=== PATIENT | female | born 1960 | race Caucasian/White ===

== ENCOUNTER → 2023-09-04 14:17 | Outpatient (REF) | payer OTHER, SELFPAY | LOC: HWRAD 14:17 | PROVIDERS: ATTENDING PHYSICIAN Internal Medicine Gastroenterology; FAMILY PHYSICIAN Family Medicine; REFERRING PHYSICIAN Urology | DX: K76.0 Fatty (change of) liver, not elsewhere classified (principal) | CPT/HCPCS: 76700 ==

== ENCOUNTER → 2024-01-21 14:00 | Outpatient (REF) | payer OTHER, SELFPAY | LOC: WDC 14:00 | PROVIDERS: ATTENDING PHYSICIAN Family Medicine | DX: Z12.31 Encounter for screening mammogram for malignant neoplasm of breast (principal) | CPT/HCPCS: 77063; 77067 ==

== ENCOUNTER 2024-05-10 14:38 | Emergency (ER) | payer OTHER, SELFPAY ==
[2024-05-10 14:43] VITALS: BP 151/84
--- NOTE | 2024-05-10 16:06 | ED.GENMED ---
History of Present Illness
<Dayna Dozier PA-C - Last Filed: 05/10/24 20:25>
General
Chief Complaint: Musculo-Skeletal Complaint
Source: patient
Exam Limitations: none
Time Seen by Provider: 05/10/24 16:00
Nursing documentation reviewed up to this point in time: agreed with
History of Present Illness
History of Present Illness:
This is a 63-year-old female with past medical history of migraines, asthma, hypertension, IBS presents emergency department today with concerns of right lower extremity pain. Patient reports that today she was walking back into her house from her
car when she slipped on ice and fell onto her right side. Patient states that she is able to stand up on her own but has a call her because she is not able to bear weight well. She notes that the pain is primarily in her right knee but
also notes right hip and right ankle pain. She also notes that her right foot has felt cold to her but she is with sensation. She denies any other injuries she states that she has not think she hit her head or injure her neck she denies any
headaches she denies any neck pain. She does not take any blood thinning medications. She not lose consciousness when she fell. She is a patient of Dr. Martin.
Past History
<Dayna Dozier PA-C - Last Filed: 05/10/24 20:25>
Past History
ED Past Medical History: HTN and Hypercholesterolemia
Social History
Tobacco: Non-smoker
Personal:
Living: with family
Review of Systems
<VANGIE Guzman Last Filed: 05/10/24 20:25>
Review of Systems
All Other Systems: ROS reviewed and negative except as documented in HPI and ROS
Phy Exam
<VANGIE Guzman Last Filed: 05/10/24 20:25>
Physical Exam
Physical Exam:
General: Patient is well appearing and in no acute distress; non-toxic
Skin: Warm and dry, no rashes or lesions
Head: Normocephalic, atraumatic
Eyes: Sclera non-icteric. EOMs intact.
Cardiac: Regular rate
Peripheral Vascular: 2+ dorsalis pedis and posterior tibial pulses bilaterally
Pulm: Normal respiratory effort
Abdomen: No abdominal tenderness
Musculoskeletal: No joint laxity of the right ankle negative anterior drawer testing. Ecchymosis and swelling noted over the right knee with no laxity with varus and valgus stress, negative Faiza's. No right hip pain with internal/external
rotation flexion extension.
Neuro: CN II-XII intact, no focal neurologic deficits.
Psychiatric: Appropriate mood and affect.
Course
<Dayna Dozier PA-C - Last Filed: 05/10/24 20:25>
Orders/Labs/Results
Orders:
Orders
05/10/24 14:47
Ankle, Right 3 view CR [CR Ankle - Right Min 3 Views *] Urgent
Comment:
Reason For Exam: pain, fall
Foot, Right 3 View [CR Foot - Right Min 3 Views] Urgent
Comment:
Reason For Exam: fall, pain
Knee, Right 4 or More Views [CR Knee- Right 4 Or More View*] Urgent
Comment:
Reason For Exam: fall, pain
05/10/24 15:00
CR Hip - RT w/wo Pel 2-3 Vw* Urgent
Comment:
Reason For Exam: injury, pain
Include a pelvis x-ray?: Yes
05/10/24 17:16
Acetaminophen [Tylenol] 1,000 mg PO NOW STA
05/10/24 19:16
Crutches-Treatment ONCE
Knee Immobilizer Right-Treatme ONCE
05/10/24 19:17
CT Lower Ext W/o Iv Cont Rt Urgent
Comment:
Reason For Exam: right knee pain
Vital Signs
Initial and Last Documented VS:
Initial Vital Signs
Temp Pulse Resp BP Pulse Ox
98.2 F 92 18 151/84 97
05/10/24 14:43 05/10/24 14:43 05/10/24 14:43 05/10/24 14:43 05/10/24 14:43
Last Documented Vital Signs
Temp Pulse Resp BP Pulse Ox
98 F 82 17 121/88 99
05/10/24 21:19 05/10/24 21:19 05/10/24 21:19 05/10/24 21:19 05/10/24 21:19
<Carmelo Manrique, DO - Last Filed: 05/11/24 00:33>
Orders/Labs/Results
Orders:
Orders
05/10/24 14:47
Ankle, Right 3 view CR [CR Ankle - Right Min 3 Views *] Urgent
Comment:
Reason For Exam: pain, fall
Foot, Right 3 View [CR Foot - Right Min 3 Views] Urgent
Comment:
Reason For Exam: fall, pain
Knee, Right 4 or More Views [CR Knee- Right 4 Or More View*] Urgent
Comment:
Reason For Exam: fall, pain
05/10/24 15:00
CR Hip - RT w/wo Pel 2-3 Vw* Urgent
Comment:
Reason For Exam: injury, pain
Include a pelvis x-ray?: Yes
05/10/24 17:16
Acetaminophen [Tylenol] 1,000 mg PO NOW STA
05/10/24 19:16
Crutches-Treatment ONCE
Knee Immobilizer Right-Treatme ONCE
05/10/24 19:17
CT Lower Ext W/o Iv Cont Rt Urgent
Comment:
Reason For Exam: right knee pain
Vital Signs
Initial and Last Documented VS:
Initial Vital Signs
Temp Pulse Resp BP Pulse Ox
98.2 F 92 18 151/84 97
05/10/24 14:43 05/10/24 14:43 05/10/24 14:43 05/10/24 14:43 05/10/24 14:43
Last Documented Vital Signs
Temp Pulse Resp BP Pulse Ox
98 F 82 17 121/88 99
05/10/24 21:19 05/10/24 21:19 05/10/24 21:19 05/10/24 21:19 05/10/24 21:19
<Dayna Dozier PA-C - Last Filed: 05/10/24 20:25>
MDM/Problems Addressed
Differential Diagnosis Includes:
Differentials include knee contusion, tibial plateau fracture, ankle sprain, bimalleolar fracture
MDM/Problems Addressed:
Is a 63-year-old female with past medical history of migraines hypertension, hyperlipidemia IBS presents emergency department today with concerns of right knee pain following a fall. On physical exam, she is neurovascularly intact. She was found
to have a lateral tibial plateau fracture on x-ray. CT scan was recommended for further characterization of the fracture. Reviewed case with Dr. Le he will see patient in office tomorrow morning for evaluation. Patient will be placed in knee
immobilizer and will be nonweightbearing with crutches. Patient stable for discharge. Case reviewed with my attending.
Chronic conditions affecting care:
htn
<Dayna Dozier PA-C - Last Filed: 05/10/24 20:25>
*Pulse Oximetry
Patient hypoxic: no
*Critical Care Note
Total Time (30-74mins, 75-104mins- exclusive of procedures): Not Applicable
Data Reviewed
Review of Other/Old Records Reveals: Records (Reviewed discharge summary from 02/21/2017 patient seen and admitted for colitis)
Source: patient and records
Prescriptions/Medications Considered But Not Given:
Patient states that she prefers to manage her pain with Tylenol
<Carmelo Manrique, - Last Filed: 05/11/24 00:33>
*Radiology
Radiology exam reviewed: radiology read reviewed (CT lower extremity shows lateral tibial plateau fracture, small avulsion fracture superior fibular head)
<Dayna Dozier PA-C - Last Filed: 05/10/24 20:25>
Patient Management
Discussion with other providers: Mail Clerk Bills (Dr. Ty Daugherty)
Escalation/DeEscalation of care consider admission/obs:
admit not indicated, case reviewed with my attending
ED Attending Note
<Dayna Dozier PA-C - Last Filed: 05/10/24 20:25>
-
Portions of this chart may have been created with voice recognition software.� Occasional wrong word or��sound alike� substitutions may have occurred due to the inherent limitations of voice recognition software.
<Carmelo Manrique DO - Last Filed: 05/11/24 00:33>
ED Attending Note
Patient seen and examined by attending physician: Yes
I performed a history and physical exam of patient and discussed management with resident, I reviewed resident's note and agree with documented findings and plan of care.: Yes
ED Attending Note:
I reviewed and agree with history treatment plan by Dayna Dozier PA-C. My exam revealed 63-year-old female with lateral joint line pain, swelling right knee. no other focal injuries. Knee immobilizer placed. Follow-up with orthopedics
tomorrow. Nonweightbearing.
Discharge Plan
Departure
Patient Disposition: Home (Routine Discharge)
Date of Disposition: 05/10/24
Time of Disposition: 20:24
Patient with high blood pressure during this ER visit?: Yes
Condition: Good
Discharge Problem:
Closed fracture of lateral portion of right tibial plateau
Instructions: How to Use Crutches, Lower Leg Fracture ED, BLOOD PRESSURE
Prescriptions:
No Action
cetirizine 10 MG tablet
10 mg PO DAILY
simvastatin 40 MG tablet
40 mg PO DAILY
lisinopril 10 MG tablet
10 mg PO DAILY
metronidazole 500 MG tablet
500 mg PO TID Qty: 18 0RF
levofloxacin 500 MG tablet
500 mg PO DAILY Qty: 6 0RF
doxycycline hyclate 100 MG capsule
100 mg PO Q12 Qty: 0 0RF
Rx Instructions:
resume after you finishe Levaquin and Flagyl.
Referrals:
Rajat Crawford MD [Active] - Call in 1-3 days for appt
Jennifer Issa DO [Family Provider] -
Activity Restrictions/Additional Instructions:
You tentatively have an appointment to see Dr. Crawford tomorrow ([facility] [address], [place] [address]) at 9:30 am at [facility] [place] office. Please call the office around 8 am to confirm this.
Please wear the knee immobilizer. Please do not bear weight on the affected knee. Please use crutches when ambulating.
PLEASE RETURN TO EMERGENCY DEPARTMENT SHOULD YOU DEVELOP AN ACUTE WORSENING OF YOUR PAIN, LOSS OF SENSATION IN YOUR LOWER EXTREMITY, PALLOR, CHEST PAIN, SHORTNESS OF BREATH, OR ANY OTHER SIGNS OR SYMPTOMS WORRISOME TO YOU.
Interventions
Interventions:
*Risk Screen - Suicide Last Done: 05/10/24 14:43
*General Assessment Last Done: 05/10/24 14:43
*Neglect/Abuse Screening Last Done: 05/10/24 14:43
ED- Fall Risk Assessment Last Done: 05/10/24 18:42
*ED COVID-19 Vaccine History Last Done: 05/10/24 18:42
*Nursing Disposition Last Done: 05/10/24 21:19
ED-Musculoskeletal Assessment Last Done: 05/10/24 16:08
Discharge Date and Time
Discharge Date/Time: 05/10/24 21:21
Print Language: AZERI
[2024-05-10] MEDS: TYLENOL 1000 MG PO (17:22)
[2024-05-10 19:00] VITALS: BP 124/86
[2024-05-10 19:02] VITALS: BMI 31.2
[2024-05-10 19:05] VITALS: BP 124/86
[2024-05-10 21:19] VITALS: BP 121/88
== END 2024-05-10 21:21 | disposition home or self-care (01) ==
LOC: EMR 14:38
PROVIDERS: EMERGENCY PHYSICIAN Emergency Medicine; FAMILY PHYSICIAN Family Medicine
DX: S82.144A Nondisplaced bicondylar fracture of right tibia, initial encounter for closed fracture (principal); S82.491A Other fracture of shaft of right fibula, initial encounter for closed fracture; S80.01XA Contusion of right knee, initial encounter; M25.551 Pain in right hip; M25.571 Pain in right ankle and joints of right foot; W00.0XXA Fall on same level due to ice and snow, initial encounter; Y93.01 Activity, walking, marching and hiking; Y92.009 Unspecified place in unspecified non-institutional (private) residence as the place of occurrence of the external cause; I10 Essential (primary) hypertension; E78.00 Pure hypercholesterolemia, unspecified; G43.909 Migraine, unspecified, not intractable, without status migrainosus; J45.909 Unspecified asthma, uncomplicated; K58.9 Irritable bowel syndrome, unspecified; K52.9 Noninfective gastroenteritis and colitis, unspecified; K57.92 Diverticulitis of intestine, part unspecified, without perforation or abscess without bleeding; Z90.5 Acquired absence of kidney; Z98.0 Intestinal bypass and anastomosis status; Z88.1 Allergy status to other antibiotic agents; Z88.5 Allergy status to narcotic agent
CPT/HCPCS: 99284; 29505; 73502; 73564; 73610; 73630; 73700

== ENCOUNTER → 2024-06-03 15:12 | Outpatient (REF) | payer OTHER, SELFPAY | LOC: RAD 15:12 | PROVIDERS: ATTENDING PHYSICIAN Nurse Practitioner; FAMILY PHYSICIAN Family Medicine | DX: R10.32 Left lower quadrant pain (principal) | CPT/HCPCS: 74177; Q9967 ==

== ENCOUNTER → 2024-08-18 09:05 | Outpatient (REF) | payer OTHER, SELFPAY | LOC: HWRAD 09:05 | PROVIDERS: ATTENDING PHYSICIAN Internal Medicine Gastroenterology; FAMILY PHYSICIAN Family Medicine; REFERRING PHYSICIAN Urology | DX: K76.0 Fatty (change of) liver, not elsewhere classified (principal) | CPT/HCPCS: 76700 ==

== ENCOUNTER 2024-10-03 08:29 | Inpatient (IN) | payer OTHER, SELFPAY ==
[2024-10-03] VITALS (9 sets, daily range): BP systolic 116–154; BP diastolic 72–89; BMI 32.0
[2024-10-03 02:00] LABS: % Basophils 0.3 % (0-2); % Eosinophils 0.4 % (0-6); % Immature Granulocytes 0.4 % (0-0.5); % Lymphocytes 7.8 % (20.5-51.1); % Monocytes 8.1 % (1.7-9.3); Absolute Basophils 0.1 10^3/uL (0-0.2); Absolute Eosinophils 0.1 10^3/uL (0-0.7); Absolute Immature Granulocytes 0.1 10^3/uL (0-0.05); Absolute Lymphocytes 1.6 10^3/uL (1.2-3.4); Absolute Monocytes 1.6 10^3/uL (0.1-0.6); Absolute Neutrophils 16.6 10^3/uL (1.4-6.5); Hematocrit 40.3 % (37.0-47.0); Hemoglobin 14.1 g/dL (12.0-16.0); Mean Corpuscular Hgb 29.7 pg (27.0-31.0); Mean Corpuscular Volume 84.8 fL (81.0-99.0); Mean Platelet Volume 8.5 fL (7.4-10.4); Nucleated Red Blood Cells % 0 %; Platelet Count 300 10^3/uL (130-400); Red Blood Cell Count 4.75 10^6/uL (4.20-5.40); Red Cell Dist. Width 12.7 % (11.5-14.5); White Blood Cell Count 20.1 10^3/uL (4.8-10.8)
[2024-10-03 02:02] LABS: Urine Albumin Negative (Neg - Trace); Urine Bilirubin Negative (Negative); Urine Character Clear (Clear); Urine Color Yellow; Urine Glucose Negative (Negative); Urine Ketone Negative (Negative); Urine Leukocyte Negative (Negative); Urine Nitrite Negative (Negative); Urine Occult Blood Negative (Negative); Urine Urobilinogen Negative (Neg - 1+)
[2024-10-03 02:11] LABS: ALT (SGPT) 30 U/L (0-35); AST (SGOT) 23 U/L (14-36); Albumin 4.4 g/dl (3.5-5.0); Alkaline Phosphatase 90 U/L (38-126); Blood Urea Nitrogen 21 mg/dl (7-17); Carbon Dioxide 25 mmol/L (22-30); Chloride 111 mmol/L (98-107); Estimated Creatinine Clearance 78 ml/min; Glucose 130 mg/dl (70-99); Lipase 173 U/L (23-300); Sodium 143 mmol/L (135-145); Total Bilirubin 1.4 mg/dl (0.2-1.3); Total Protein 6.7 g/dl (6.3-8.2); eGFR > 60.00
--- NOTE | 2024-10-03 02:18 | ED.GENMED ---
History of Present Illness
<Khushbu Ward MD - Last Filed: 10/03/24 02:52>
General
Chief Complaint: Abdominal Pain
Source: patient and spouse
Time Seen by Provider: 10/03/24 02:04
History of Present Illness
History of Present Illness:
This patient is a 64-year-old female who states that she was feeling her usual self all day today. After dinner she went for a walk and she started to feel like she needed to have a bowel movement. When she got home she passed originally a solid
stool that then became liquid. Since that time, she has had multiple episodes of passing what looks like mostly red blood with mixed bits in it. She also has diffuse abdominal pain that feels like 'cramp', that waxes and wanes in intensity without
specific provoking or relieving factors. It is without radiation. She is slightly nauseous but denies vomiting, fever, chills. She denies recent travel, sick contacts, chest pain or shortness of breath. Patient recently had an episode of colitis
treated with Augmentin approximately 3 months ago. Otherwise no recent antibiotics.
Past History
<Khushbu Ward MD - Last Filed: 10/03/24 02:52>
Past History
ED Past Medical History: HTN, Hypercholesterolemia and Other (Asthma, colitis, kidney cancer)
ED Past Surgical History: Orthopedic
Social History
Tobacco: Non-smoker
Alcohol: None
Drug: None
Personal:
Living: with family
Phy Exam
<Khushbu Ward MD - Last Filed: 10/03/24 02:52>
Physical Exam
Physical Exam:
GENERAL: Alert , in no apparent distress
EYE: pupils equal and reactive
NECK: Supple, no significant adenopathy.
ENT: o/p clr, mmm.
CARDIAC: Regular rate and rhythm .
LUNGS: Clear breath sounds bilaterally, no acute respiratory distress, no wheezes/rales/rhonchi
ABDOMEN: Soft, nonspecific mild diffuse tenderness, no r/g, no cvat
NEUROLOGICAL: Alert and oriented, no focal neuro deficits
SKIN: Warm and dry, skin intact.
MUSCULOSKELETAL: No edema, well perfused.
PSYCH: Normal and appropriate interaction.
Course
<Khushbu Ward MD - Last Filed: 10/03/24 02:52>
Orders/Labs/Results
Orders:
Orders
10/03/24 01:44
Complete Blood Count/With Diff Urgent
Comprehensive Metabolic Panel Urgent
Lipase Urgent
Urinalysis Reflex To Culture Urgent
Date Specimen was Collected: 10/03/24
Time Specimen was Collected: 01:42
10/03/24 02:17
CT Abd/Pel (IV only)-DH only Urgent
Comment:
Reason For Exam: hx colitis, now diffuse abd pain/bloody stool
10/03/24 02:20
0.9% Sodium Chloride 1000 ml [Nss] 1,000 ml IV BOLUS
10/03/24 02:53
Lactic Acid Urgent
10/03/24 02:58
Ondansetron Injectable [Zofran] 4 mg .ROUTE .STK-MED ONE
10/03/24 03:01
Ondansetron Injectable [Zofran] 4 mg IV NOW STA
10/03/24 03:24
Acetaminophen 1000 MG ONCE Acetaminophen 1000MG/100Ml [Ofirmev] 1,000 mg in 100 ml IV ONCE
Acetaminophen IV Indication:: ED Narcotic Naive Pt-ONCE
Zosyn 4.5 grams IVPB NOW Piperacillin/Tazo 4.5 Gram [Zosyn] 4.5 gram in 100 ml IV NOW
Abnormal Lab Results
10/03/24
01:44
WBC 20.1 H 10^3/uL
(4.8-10.8)
Abs Immat Gran (auto) 0.1 H 10^3/uL
(0-0.05)
Absolute Neuts (auto) 16.6 H 10^3/uL
(1.4-6.5)
Absolute Monos (auto) 1.6 H 10^3/uL
(0.1-0.6)
Neutrophils % 83.0 H %
(42.2-75.2)
Lymphocytes % 7.8 L %
(20.5-51.1)
Chloride 111 H mmol/L
(98-107)
BUN 21 H mg/dl
(7-17)
Glucose 130 H mg/dl
(70-99)
Total Bilirubin 1.4 H mg/dl
(0.2-1.3)
10/03/24 01:44
10/03/24 01:44
Vital Signs
Initial and Last Documented VS:
Initial Vital Signs
Temp Pulse Resp BP Pulse Ox
98 F 103 20 141/88 96
10/03/24 01:08 10/03/24 01:08 10/03/24 01:08 10/03/24 01:08 10/03/24 01:08
Last Documented Vital Signs
Temp Pulse Resp BP Pulse Ox
98 F 103 20 136/89 98
10/03/24 01:08 10/03/24 01:08 10/03/24 01:08 10/03/24 03:00 10/03/24 03:00
<Carol Murcia, DO - Last Filed: 10/03/24 03:29>
Orders/Labs/Results
Orders:
Orders
10/03/24 01:44
Complete Blood Count/With Diff Urgent
Comprehensive Metabolic Panel Urgent
Lipase Urgent
Urinalysis Reflex To Culture Urgent
Date Specimen was Collected: 10/03/24
Time Specimen was Collected: 01:42
10/03/24 02:17
CT Abd/Pel (IV only)-DH only Urgent
Comment:
Reason For Exam: hx colitis, now diffuse abd pain/bloody stool
10/03/24 02:20
0.9% Sodium Chloride 1000 ml [Nss] 1,000 ml IV BOLUS
10/03/24 02:53
Lactic Acid Urgent
10/03/24 02:58
Ondansetron Injectable [Zofran] 4 mg .ROUTE .STK-MED ONE
10/03/24 03:01
Ondansetron Injectable [Zofran] 4 mg IV NOW STA
10/03/24 03:24
Acetaminophen 1000 MG ONCE Acetaminophen 1000MG/100Ml [Ofirmev] 1,000 mg in 100 ml IV ONCE
Acetaminophen IV Indication:: ED Narcotic Naive Pt-ONCE
Zosyn 4.5 grams IVPB NOW Piperacillin/Tazo 4.5 Gram [Zosyn] 4.5 gram in 100 ml IV NOW
Abnormal Lab Results
10/03/24
01:44
WBC 20.1 H 10^3/uL
(4.8-10.8)
Abs Immat Gran (auto) 0.1 H 10^3/uL
(0-0.05)
Absolute Neuts (auto) 16.6 H 10^3/uL
(1.4-6.5)
Absolute Monos (auto) 1.6 H 10^3/uL
(0.1-0.6)
Neutrophils % 83.0 H %
(42.2-75.2)
Lymphocytes % 7.8 L %
(20.5-51.1)
Chloride 111 H mmol/L
(98-107)
BUN 21 H mg/dl
(7-17)
Glucose 130 H mg/dl
(70-99)
Total Bilirubin 1.4 H mg/dl
(0.2-1.3)
10/03/24 01:44
10/03/24 01:44
Vital Signs
Initial and Last Documented VS:
Initial Vital Signs
Temp Pulse Resp BP Pulse Ox
98 F 103 20 141/88 96
10/03/24 01:08 10/03/24 01:08 10/03/24 01:08 10/03/24 01:08 10/03/24 01:08
Last Documented Vital Signs
Temp Pulse Resp BP Pulse Ox
98 F 103 20 136/89 98
10/03/24 01:08 10/03/24 01:08 10/03/24 01:08 10/03/24 03:00 10/03/24 03:00
<Khushbu Ward MD - Last Filed: 10/03/24 02:52>
*Pulse Oximetry
SaO2: 96
Oxygen Mode of Delivery: Room air
<Carol Murcia DO - Last Filed: 10/03/24 03:29>
*Radiology
Radiology exam reviewed: radiology read reviewed
*Pulse Oximetry
Patient hypoxic: no
*Critical Care Note
Total Time (30-74mins, 75-104mins- exclusive of procedures): Not Applicable
<Khushbu Ward MD - Last Filed: 10/03/24 02:52>
Update Note
Update Note:
Patient presents to the Emergency Department with ____abdominal pain and bloody stool
Number and Complexity of Problems Addressed at the Encounter
� Chronic conditions affecting care:
� Acute Exacerbation and/or Progression of Chronic Illness:
� Differential Diagnosis includes: But not limited to ischemic colitis, infectious colitis, diverticulitis, etc. etc.
Amount and/or Complexity of Data to be Reviewed and Analyzed
� I performed an independent evaluation of and my interpretation is:
EKG:
CT:
Xrays:
Laboratory Studies: Leukocytosis noted, lactic acid pending, mild prerenal azotemia
Other:
� Review of other/old records reveals: Patient had an episode of colitis in 2017 treated with antibiotic
� Clinical information was obtained by an independent historian: who is bedside
� Prescriptions/Medications Considered but not given:
� Further testing considered but not performed:
Risk of Complications and/or Morbidity or Mortality of Patient Management
� Social determinants of health affecting care:
� Discussion with other providers (PCP, Hospitalists, Consultants, etc):
� Escalation of care including admission/observation vs risk of discharge considered: CT report pending, likely colitis, may need admission IV antibiotics.
<Carol Murcia, DO - Last Filed: 10/03/24 03:29>
Update Note
Update Note:
Patient presents to the Emergency Department with ____abdominal pain and bloody stool
Number and Complexity of Problems Addressed at the Encounter
� Chronic conditions affecting care:
� Acute Exacerbation and/or Progression of Chronic Illness:
� Differential Diagnosis includes: But not limited to ischemic colitis, infectious colitis, diverticulitis, etc. etc.
Amount and/or Complexity of Data to be Reviewed and Analyzed
� I performed an independent evaluation of and my interpretation is:
EKG:
CT:
Xrays:
Laboratory Studies: Leukocytosis noted, lactic acid pending, mild prerenal azotemia
Other:
� Review of other/old records reveals: Patient had an episode of colitis in 2017 treated with antibiotic
� Clinical information was obtained by an independent historian: who is bedside
� Prescriptions/Medications Considered but not given:
� Further testing considered but not performed:
Risk of Complications and/or Morbidity or Mortality of Patient Management
� Social determinants of health affecting care:
� Discussion with other providers (PCP, Hospitalists, Consultants, etc):
� Escalation of care including admission/observation vs risk of discharge considered: CT report pending, likely colitis, may need admission IV antibiotics.
03:20
CAT scan shows uncomplicated sigmoid diverticulitis versus short segment of colitis. No bowel obstruction.
Will initiate IV Zosyn for diverticulitis versus infectious, hemorrhagic colitis. I have offered pain medication, patient hesitant for IV narcotics, agreeable to IV Tylenol.
Will continue IV fluids and admit to hospitalist service.
ED Attending Note
<Khushbu Ward MD - Last Filed: 10/03/24 02:52>
-
Portions of this chart may have been created with voice recognition software.� Occasional wrong word or��sound alike� substitutions may have occurred due to the inherent limitations of voice recognition software.
Discharge Plan
Departure
Patient Disposition: Admit
Date of Disposition: 10/03/24
Time of Disposition: 03:25
Admit to: Med/Surg
Admit to doctor: [facility]
Presentation/result/management discussed w/ accepting MD/DO: Hospitalist
Condition: Fair
Discharge Problem:
Acute diverticulitis, Acute hemorrhagic colitis
Prescriptions:
No Action
cetirizine 10 MG tablet
10 mg PO DAILY
simvastatin 40 MG tablet
40 mg PO DAILY
lisinopril 10 MG tablet
10 mg PO DAILY
metronidazole 500 MG tablet
500 mg PO TID Qty: 18 0RF
levofloxacin 500 MG tablet
500 mg PO DAILY Qty: 6 0RF
doxycycline hyclate 100 MG capsule
100 mg PO Q12 Qty: 0 0RF
Rx Instructions:
resume after you finishe Levaquin and Flagyl.
Referrals:
Jennifer Issa DO [Family Provider, Family Practice]
Interventions
Interventions:
*Risk Screen - Suicide Last Done: 10/03/24 01:08
*General Assessment Last Done: 10/03/24 01:08
*Neglect/Abuse Screening Last Done: 10/03/24 01:08
*ED- Fall Risk Assessment Last Done: 10/03/24 01:08
*ED COVID-19 Vaccine History Last Done: 10/03/24 01:08
TU-Yvftuo-Uzmsthafff Assessment Last Done: 10/03/24 01:31
ED- Cardiac Assessment Last Done: 10/03/24 01:31
ED- Pulmonary Assessment Last Done: 10/03/24 01:31
Discharge Date and Time
Print Language: URDU
[2024-10-03] MEDS: NSS 1000 IV (02:25)
[2024-10-03] MEDS: ZOFRAN 4 MG IV (03:05)
[2024-10-03 03:14] LABS: Lactic Acid 1.1 mmol/L (0.7-2.0)
--- NOTE | 2024-10-03 03:28 | HPS.HSE ---
Family Physician
-
Family Physician: Jennifer Issa
Chief Complaint
-
Abdominal pain
History of Present Illness
This is a 64-year-old female past medical history of hypertension, hyperlipidemia, prior diverticulitis with a prior sigmoidectomy presented to the emergency room with abdominal pain.
She reported acute onset of epigastric abdominal pain immediately after dinner. Associated with bloating. She reports the pain is nonradiating and not associated with fevers or chills. She attempted to sleep but had continued abdominal pain and
then started having bloody bowel movement. She reports bloody stools mixed with mucus. She denies any melena. She reports that this is reminiscent of prior episode of similar presentation in 2017. Patient reports that she has had a colonoscopy
since then and has not been diagnosed with inflammatory bowel disease. She denies any blood thinners or NSAID use.
In the emergency department patient was afebrile, blood pressure was 136/89 with a pulse of 103 and she was satting 98% on room air.
White count was 20, hemoglobin was 14.1 and platelet count was 300. Electrolytes were all normal. BUN and creatinine were normal.
Patient had a CT of the abdomen pelvis which showed a sigmoid diverticulitis versus possible colitis.
Medical History
Past Medical History
Past Medical History: Reports GERD, HTN, Hypercholesterolemia and Other (History of diverticulitis)
Additional Past Medical History:
Bladder cancer status post partial nephrectomy
Past Surgical History: Reports Bowel Resection (Sigmoidectomy) and Urological (Partial nephrectomy)
Social History
Tobacco: Non-smoker
Alcohol: None
Drug: None
Family History
Family History: Not pertinent
Allergies / Home Medications
Allergies reflects when Allergies were last updated in [facility].
Home Medications with original date entered in [facility]
Allergy/Medication List:
Allergies
Allergy/AdvReac Type Severity Reaction Status Date / Time
ciprofloxacin (From Cipro) Allergy Unknown Verified 10/03/24 01:08
codeine AdvReac Nausea / Verified 10/03/24 01:08
Vomiting
Home Medications
cetirizine 10 mg tablet 10 mg PO DAILY 01/31/17
lisinopril 10 mg tablet 10 mg PO DAILY 01/31/17
atorvastatin 20 mg tablet 20 mg PO DAILY 01/31/17
Pepcid Ac 20mg tablet 20mg PO HS
Pantoprazole 40mg tablet 40mg PO DAILY
Review of Systems
-
Constitutional: Reports No Symptoms
EENT: Reports No Symptoms
Respiratory: Reports No Symptoms
Cardiac: Reports No Symptoms
Abdomen/GI: Reports Abdominal Pain and Bloody Stools
: Reports No Symptoms
Musculoskeletal: Reports No Symptoms
Skin: Reports No Symptoms
Neurological: Reports No Symptoms
Endocrine: Reports No Symptoms
Hematologic/Lymphatic: Reports No Symptoms
Psych: Reports No Symptoms
Physical Exam
Vital Signs
Vital Signs
Temp Pulse Resp BP Pulse Ox
98 F 103 20 136/89 98
10/03/24 01:08 10/03/24 01:08 10/03/24 01:08 10/03/24 03:00 10/03/24 03:00
Physical Exam
General: Well Developed, Well Nourished and No Apparent Distress
HEENT: NormoCephalic, Moist mucous membranes and Atraumatic
Respiratory: Clear
Cardiac: S1/S2 and Regular Rhythm; No Murmur or Rub
GI: Soft, Non Tender, Non Distended and Normal Bowel Sounds; No Organomegaly
Rectal: Deferred by Provider
Musculoskeletal: No Clubbing, No Cyanosis and No Edema
Skin: No Rash
Neuro: Nonfocal/grossly intact
Laboratory Results
-
10/03/24 01:44
10/03/24 01:44
Laboratory Results
Lactic Acid 1.1 mmol/L (0.7-2.0) 10/03/24 02:53
Total Bilirubin 1.4 mg/dl (0.2-1.3) H 10/03/24 01:44
AST 23 U/L (14-36) 10/03/24 01:44
ALT 30 U/L (0-35) 10/03/24 01:44
Alkaline Phosphatase 90 U/L (38-126) 10/03/24 01:44
Lipase 173 U/L (23-300) 10/03/24 01:44
Data Reviewed
-
CT Scan: Report Reviewed by me
Lab Data: Labs Reviewed by me
Old Records: Reviewed
Impression/Plan
-
IMPRESSION:
This is a 64-year-old coming with acute onset of abdominal pain, hematochezia with mucus containing stool, leukocytosis and found to have uncomplicated sigmoid diverticulitis versus a short segment colitis. She is currently afebrile and
hemodynamically stable. She is not on any thinners. Hemoglobin is 14.
PLAN:
Acute sigmoid diverticulitis with associated hematochezia. Cannot rule out short segment colitis. No known history of inflammatory bowel disease. Been followed by Dr. Sue in the past.
-[facility]
-N.p.o. for now
-Not currently having any bowel movements, will get stool studies
-IV Zosyn started in the ED, will continue for now given prior history of recurrent diverticulitis
-IV fluids, pain control and antiemetics
-Continue patient's PPI and H2 blockade
-Type and screen with a.m. labs
-Trend H&H
-Giving associated lower GI bleed will consult GI
DVT prophylaxis�SCDs
CODE STATUS�full code
[2024-10-03] MEDS: ZOSYN 100 IV (03:31)
[2024-10-03] MEDS: OFIRMEV 100 IV (03:34)
[2024-10-03] MEDS: D5LR 1000 IV ×2 (05:26→17:28)
[2024-10-03 07:59] LABS: Hematocrit 38.6 % (37.0-47.0); Hemoglobin 13.3 g/dL (12.0-16.0); Mean Corp Hgb Conc. 34.5 g/dL (33.0-37.0); Mean Corpuscular Hgb 29.8 pg (27.0-31.0); Mean Corpuscular Volume 86.4 fL (81.0-99.0); Mean Platelet Volume 8.7 fL (7.4-10.4); Platelet Count 271 10^3/uL (130-400); Red Blood Cell Count 4.47 10^6/uL (4.20-5.40); Red Cell Dist. Width 12.8 % (11.5-14.5); White Blood Cell Count 16.1 10^3/uL (4.8-10.8)
[2024-10-03] MEDS: ZESTRIL 10 MG PO (08:24)
[2024-10-03] MEDS: NSS (PRESERVATIVE FREE) 10 ML IV (08:25)
[2024-10-03] MEDS: PROTONIX IV 40 MG IV (08:25)
[2024-10-03 09:01] LABS: Blood Urea Nitrogen 17 mg/dl (7-17); Calcium 9.3 mg/dl (8.4-10.2); Carbon Dioxide 26 mmol/L (22-30); Chloride 111 mmol/L (98-107); Estimated Creatinine Clearance 79 ml/min; Glucose 130 mg/dl (70-99); Magnesium 2.3 mg/dl (1.6-2.3); Potassium 4.1 mmol/L (3.5-5.1); Sodium 144 mmol/L (135-145); eGFR > 60.00
[2024-10-03] MEDS: ZOSYN 50 IV ×3 (09:36→21:51)
--- NOTE | 2024-10-03 10:26 | W.PN.UPDATE ---
Addendum entered and electronically signed by Sandee Price MD 10/03/24 10:40:
correction: seen by Dr. Adams in the past
Original Note:
Update Note
Progress Note Update
Non-billable addendum
Admitted 10/03 3 AM for diverticulitis vs sigmoid colitis
Assessment:
Acute sigmoid diverticulitis with associated hematochezia. Cannot rule out short segment colitis. No known history of inflammatory bowel disease. Been followed by Dr. Sue in the past.
- continue IVF
- trial clears now
- continue IV Zosyn, day 1
- pain control, anti-emetics
- monitor H and H with hematochezia
- GI following
Essential HTN
- continue GUY
HLD - statin
DVT ppx: SCDs
Code: Full
--- NOTE | 2024-10-03 10:55 | CON.GI ---
Consultation
-
Date/Time Consultation Requested: 10/03/2024
Date/Time Consultation Performed: 10/03/2024
Requesting Provider: Hospitalist
Performing Provider: Ciro PEREZ
Reason for Consultation: Divericulitis
Medical History
Chief Complaint / HPI
Chief Complaint: abdominal pain
History of Present Illness:
64-year-old female with below mentioned past medical history is admitted with abdominal pain /rectal bleeding for 1 day. Patient with prior history of diverticulitis underwent sigmoidectomy in the past follows up with Dr. Adams. She had an
episode of diverticulitis May 2024 and was treated with antibiotics ( prior to that in 2016 after her surgery ) She claims this time abdominal pain started with bloating after dinner. Her bowel movements are usually regular. She noticed
mucus/blood with her stools prior to coming to the hospital. No further episodes this a.m. Currently feeling better.
On admission WBC 20.1. Hb 14.1. Platelets 271
Lactic acid normal. Liver test AST/ALT/alkaline phosphatase normal. Total bilirubin 1.4. Lipase 173
CT abdomen/pelvis with IV contrast showing short segment wall thickening involving the proximal sigmoid colon�differential mild acute diverticulitis with versus short segment colitis. No perforation or abscess
Past Medical History
Past Medical History: Other (GERD, HTN, Hypercholesterolemia and Other (History of diverticulitis),kidney cancer )
Past Surgical History: Other (Bowel Resection (Sigmoidectomy) and Urological (Partial nephrectomy))
Social History
Tobacco: Non-Smoker
Alcohol: None
Allergies / Home Medications
Allergy/AdvReac Type Severity Reaction Status Date / Time
ciprofloxacin (From Cipro) Allergy Unknown Verified 10/03/24 01:08
codeine AdvReac Nausea / Verified 10/03/24 01:08
Vomiting
�Medication �Instructions �Recorded
cetirizine 10 mg tablet 10 mg PO DAILY 01/31/17
lisinopril 10 mg tablet 10 mg PO DAILY 01/31/17
simvastatin 40 mg tablet 40 mg PO DAILY 01/31/17
doxycycline hyclate 100 mg capsule 100 mg PO Q12 ##0 02/03/17
levofloxacin 500 mg tablet 500 mg PO DAILY #6 tabs 02/03/17
metronidazole 500 mg tablet 500 mg PO TID #18 tabs 02/03/17
Review of Systems
-
All other systems: A 12 pt ROS was Negative except as stated above in HPI
Vital Signs
Temp Pulse Resp BP Pulse Ox
98.1 F 78 16 116/77 97
10/03/24 07:00 10/03/24 08:24 10/03/24 07:00 10/03/24 08:24 10/03/24 07:00
Physical Exam
Exam
General: Well Developed and No Apparent Distress
Respiratory: Clear
Cardiac: S1/S2
GI: Soft, Non Tender and Non Distended
Results
WBC 16.1 10^3/uL (4.8-10.8) H 10/03/24 07:29
Hgb 13.3 g/dL (12.0-16.0) 10/03/24 07:29
Hct 38.6 % (37.0-47.0) 10/03/24 07:29
MCV 86.4 fL (81.0-99.0) 10/03/24 07:29
Plt Count 271 10^3/uL (130-400) 10/03/24 07:29
Absolute Neuts (auto) 16.6 10^3/uL (1.4-6.5) H 10/03/24 01:44
Sodium 144 mmol/L (135-145) 10/03/24 07:29
Potassium 4.1 mmol/L (3.5-5.1) 10/03/24 07:29
Chloride 111 mmol/L (98-107) H 10/03/24 07:29
Carbon Dioxide 26 mmol/L (22-30) 10/03/24 07:29
BUN 17 mg/dl (7-17) 06/21/25 07:29
Creatinine 0.8 mg/dL (0.6-1.0) 10/03/24 07:29
Calcium 9.3 mg/dl (8.4-10.2) 10/03/24 07:29
Total Bilirubin 1.4 mg/dl (0.2-1.3) H 10/03/24 01:44
AST 23 U/L (14-36) 10/03/24 01:44
ALT 30 U/L (0-35) 10/03/24 01:44
Alkaline Phosphatase 90 U/L (38-126) 10/03/24 01:44
Lipase 173 U/L (23-300) 10/03/24 01:44
Diagnostic Image Results:
CT abd/ pel 10/03/2024 with IV cont
IMPRESSION:
Short segment wall thickening with mild soft tissue stranding involving the proximal sigmoid colon. Slightly greater than that seen previously. Small diverticulum at the proximal margin. The differential includes mild acute diverticulitis involving
the proximal sigmoid colon versus short segment colitis. No perforation or abscess.
Stable nonobstructing right renal calculi.
Prior GI Procedures:
EGD: 04/17/2017
Impression: - Normal examined duodenum.
- Erythematous mucosa in the antrum. Biopsied. no HP
- Small hiatal hernia.
- Z-line variable, 35 cm from the incisors. Biopsied - no BE
- Non-obstructing Schatzki ring.
- No gross lesions in esophagus. Biopsied.
Colonoscopy: 08/20/2022
Impression: - The examined portion of the ileum was normal.
- One 1 mm polyp in the ascending colon, removed with
a jumbo cold forceps. Resected and retrieved.path - hyperplastic changes
- One 5 mm polyp at the hepatic flexure, removed with
a cold snare. Resected and retrieved. path TA
- Diverticulosis in the sigmoid colon and in the
descending colon.
- Patent end-to-end colo-colonic anastomosis.
- Internal hemorrhoids.
Assessment / Plan
-
64-year-old female with history of diverticulitis status post sigmoid resection in 2003 is admitted with abdominal pain/rectal bleeding. No fever . CT imaging done at ED suggestive of sigmoid diverticulitis. She was also noted to have leukocytosis
on admission-20.1k. Lactic acid normal. Hb normal
-- Recurrent sigmoid diverticulitis (last episode May 2024 treated with antibiotics). Last colonoscopy 2022-details above
-- History of diverticulitis s/p sigmoid resection 2003
-- hx colon polyps
plan
Patient clinically feeling better this a.m. WBC trending down . No fever . Okay to start clear liquids and advance as tolerated
Pain management as per medical team
Continue antibiotics
Monitor Hb
outpatient follow up with on discharge
Total Time Spent with Patient (in minutes): 55
-
-
Thank you for consultation and allowing me to participate in the patient's care. Please call the [facility] GI physician during the after hours with any questions or concerns.
--- NOTE | 2024-10-03 11:18 | PTCARENOTE ---
Pt has brace to her [place]. Present upon admission
[2024-10-03] MEDS: VISBIOME 1 CAP PO (13:42)
[2024-10-03] MEDS: TYLENOL 650 MG PO (13:44)
[2024-10-03 14:07] LABS: Hematocrit 41.1 % (37.0-47.0); Hemoglobin 14.1 g/dL (12.0-16.0)
[2024-10-03] MEDS: LIPITOR 20 MG PO (17:12)
[2024-10-03] MEDS: NSS (PRESERVATIVE FREE) 8 ML IV (21:51)
[2024-10-03] MEDS: PEPCID 20 MG IV (21:51)
[2024-10-04] MEDS: ZOSYN 50 IV ×3 (03:36→15:01)
[2024-10-04] MEDS: D5LR 1000 IV (06:03)
[2024-10-04 07:18] LABS: Hematocrit 39.1 % (37.0-47.0); Hemoglobin 13.3 g/dL (12.0-16.0); Mean Corpuscular Hgb 29.7 pg (27.0-31.0); Mean Corpuscular Volume 87.3 fL (81.0-99.0); Mean Platelet Volume 8.6 fL (7.4-10.4); Platelet Count 269 10^3/uL (130-400); Red Blood Cell Count 4.48 10^6/uL (4.20-5.40); White Blood Cell Count 9.3 10^3/uL (4.8-10.8)
[2024-10-04 07:45] LABS: ALT (SGPT) 25 U/L (0-35); AST (SGOT) 20 U/L (14-36); Albumin 3.6 g/dl (3.5-5.0); Alkaline Phosphatase 87 U/L (38-126); Blood Urea Nitrogen 9 mg/dl (7-17); Calcium 9.2 mg/dl (8.4-10.2); Carbon Dioxide 23 mmol/L (22-30); Chloride 114 mmol/L (98-107); Estimated Creatinine Clearance 79 ml/min; Glucose 154 mg/dl (70-99); Potassium 4.2 mmol/L (3.5-5.1); Sodium 143 mmol/L (135-145); Total Bilirubin 2.3 mg/dl (0.2-1.3); Total Protein 5.8 g/dl (6.3-8.2); eGFR > 60.00
[2024-10-04 07:55] VITALS: BP 135/80
[2024-10-04] MEDS: ZESTRIL 10 MG PO (08:33)
[2024-10-04] MEDS: PROTONIX IV 40 MG IV (08:33)
[2024-10-04] MEDS: NSS (PRESERVATIVE FREE) 10 ML IV (08:33)
[2024-10-04] MEDS: VISBIOME 1 CAP PO (08:34)
[2024-10-04 10:16] LABS: Direct Bilirubin 0.3 mg/dl (0.0-0.4)
--- NOTE | 2024-10-04 11:20 | W.PN.GI.CBS2 ---
Today's Communication / Plan
-
low residual diet
outpatient GI follow up
Assessment / Plan
-
64-year-old female with history of diverticulitis status post sigmoid resection in 2003 is admitted with abdominal pain/rectal bleeding. No fever . CT imaging done at ED suggestive of sigmoid diverticulitis. She was also noted to have leukocytosis
on admission-20.1k. Lactic acid normal. Hb normal
-- Recurrent sigmoid diverticulitis (last episode May 2024 treated with antibiotics). Last colonoscopy 2022-details above
-- History of diverticulitis s/p sigmoid resection 2003
-- hx colon polyps
plan
Clinically doing well. Labs this a.m. WBC normal. Hb stable tolerating liquid diet. Okay to advance to low residual diet
Pain management as per medical team
Continue oral antibiotics on discharge ( total of 7 days )
follow up with ( message sent to office ) - outpatient colonoscopy . will sign off
Total Time Spent with Patient (in minutes): 35
Subjective
Subjective
Date of Service: October 04, 2024
Tolerating liquid diet. Minimal abdominal discomfort. Denies any rectal bleeding
Objective
Data Reviewed
Laboratory Data:
Laboratory Results
10/04/24 07:05
10/04/24 07:05
Laboratory Results
Magnesium 2.3 mg/dl (1.6-2.3) 10/03/24 07:29
Total Bilirubin 2.3 mg/dl (0.2-1.3) H D 10/04/24 07:05
AST 20 U/L (14-36) 10/04/24 07:05
ALT 25 U/L (0-35) 10/04/24 07:05
Alkaline Phosphatase 87 U/L (38-126) 10/04/24 07:05
Lipase 173 U/L (23-300) 10/03/24 01:44
Vital Signs and I&O:
Vital Signs
Temp Pulse Resp BP Pulse Ox
97.4 F 69 16 135/80 97
10/04/24 07:55 10/04/24 08:33 10/04/24 07:55 10/04/24 08:33 10/04/24 08:45
I&O
10/03/24 10/04/24 10/05/24
06:59 06:59 06:59
Intake Total 1080 / 1080
Balance 1080 / 1080
Physical Exam
Physical Exam
GI: Soft, Non Distended and Non Tender
--- NOTE | 2024-10-04 13:55 | W.PN.HOSP.TC ---
Addendum entered and electronically signed by Ric Leblanc MD 10/06/24 17:17:
Based on clinical response, the area of the colon noted on the CT scan is almost definitely short segment diverticulitis and very unlikely to be short segment colitis. Patient is to follow up with GI as outpatient and this will be addressed more
fully at that time.
Original Note:
Today's Communication/Plan
-
dc to home
Assessment / Plan
Assessment / Plan
Acute sigmoid diverticulitis with associated hematochezia. Cannot rule out short segment colitis. No known history of inflammatory bowel disease. Been followed by Dr. Sue in the past.
- diet advanced to low residue, she is tolerating
- continue IV Zosyn, for 1 more dose, then dc on oral augmentin
- pain control, anti-emetics
- monitor H and H with hematochezia
- GI following
had prior resection 2002 of partial sigmoid for diverticulitis
Essential HTN
- continue GUY
HLD - statin
DVT ppx: SCDs
Code: Full
Pt cleared by GI to be discharged, will dc now after next dose of Zosyn
will need outpt follow up, consider f/u with [facility], name given
More than 30 minutes spent in discharge including
Final examination of the patient
Summarizing hospital stay
Instructions for continuing care to all relevant caregivers
Preparation of discharge records, prescriptions, and referral forms
Total time spent (in minutes): 45
Anticipated Discharge: Today
Subjective/Interval History
-
Date of Service: October 04, 2024
Feels much better, passing flatus, no stool, tolerated diet
Objective Data
-
Labs:
Laboratory Results
10/04/24
07:05
WBC 9.3
Hgb 13.3
Hct 39.1
Plt Count 269
Sodium 143
Potassium 4.2
Chloride 114 H
Carbon Dioxide 23
BUN 9
Creatinine 0.8
Glucose 154 H
Calcium 9.2
Total Bilirubin 2.3 H D
AST 20
ALT 25
Alkaline Phosphatase 87
Vital Signs:
Vital Signs
Temp Pulse Resp BP Pulse Ox
97.4 F 69 16 135/80 97
10/04/24 07:55 10/04/24 08:33 10/04/24 07:55 10/04/24 08:33 10/04/24 08:45
I&O
10/03/24 10/04/24 10/05/24
06:59 06:59 06:59
Intake Total 1080 / 1080
Balance 1080 / 1080
Review of Systems
-
History Source: Patient and Coordinated Provider (KAREEM Figueredo)
Constitutional: Denies Fever
EENT: Reports No Symptoms Reported
Respiratory: Reports No Symptoms
Cardiac: Reports No Symptoms
Abdomen/GI: Reports Abdominal Pain (almost entirely resolved)
Genitourinary: Reports No Symptoms
Musculoskeletal: Reports No Symptoms
Neuro: Reports No Symptoms
Physical Exam
-
General: Well Developed, Well Nourished and No Apparent Distress
HEENT: Normocephalic, Atraumatic and Moist Mucous Membranes
Respiratory: Clear to Auscultation; Negative Wheezes, Rales or Rhonchi
Cardiac: Regular Rhythm and S1/S2
GI: Soft, Nondistended, Normal Bowel Sounds and Tender (mild LLQ tenderness)
[2024-10-04 14:29] VITALS: BP 141/80
--- NOTE | 2024-10-04 15:44 | CM ---
Chart reviewed and patient has been cleared for discharge today to home no needs, patient is independent with adl's and ambulation.
PCP: Jennifer Issa
Pharmacy: [facility].
--- NOTE | 2024-10-04 18:37 | W.DS.TRANS ---
DC Summary - Product Safety Head
-
Discharge Instructions:
Discharge Diagnosis/Procedures Diverticulitis
Diet Low Residue
Activity As tolerated
Driving Restrictions Not until seen by your Dr
Bathing Restrictions None
Instructions:
Stand-Alone Forms:
Changes to Home Medications: Yes
Discharge Medications:
DC Medications w/original date entered in [facility]
cetirizine 10 mg tablet 10 mg PO DAILY 01/31/17
lisinopril 10 mg tablet 10 mg PO DAILY 01/31/17
Lactobac/Bifidobac [Visbiome] 1 cap PO DAILY ##0 10/04/24
amoxicillin 875 mg-potassium clavulanate 125 mg tablet 1 tab PO BID #20 tabs 10/04/24
atorvastatin 20 mg tablet 20 mg PO QPM #0 tabs 10/04/24
famotidine-Ca carb-mag hydrox 10 mg-800 mg-165 mg chewable tablet (Pepcid Complete) 1 tab PO DAILY #30 tabs 10/04/24
pantoprazole 40 mg tablet,delayed release (Protonix) 40 mg PO DAILY #30 tabs 10/04/24
Home Medication Changes
Augmentin for 10 days
Pending Results: No
--- NOTE | 2024-10-06 13:43 | PN.CDI ---
CDI
- -
CDI:
Physician Documentation Request
Admit Date: 10/03/24 08:29
Dear Doctor Deana,
Patient admitted with acute sigmoid diverticulitis with associated hematochezia.
Discharge Summary, 'CT scan of her abdomen demonstrated short-segment wall of bowel
with mild soft tissue stranding involving the proximal sigmoid
colon, slightly greater than seen previously, small diverticulum at
the proximal margin. The differential includes mild acute
diverticulitis involving the proximal sigmoid colon versus
short-segment colitis.'
10/04 PN, 'Cannot rule out short segment colitis.'
Please indicate in your progress notes if you are in agreement that the above diagnosis is valid for this patient:
____ - Short segment colitis is a valid diagnosis (Please include it in your progress notes)
____ - Short segment colitis is not a valid diagnosis for this patient
____ - Short segment colitis is not yet confirmed but remains a suspected condition
____ - Other
Use of terms such as suspected, likely, concern for, or probable are acceptable for a diagnosis that is being evaluated, monitored or treated as if it exists and can be coded in the inpatient setting, when documented at the time of discharge.
Thank you,
Mera DAVID,RN,CCDS
CDI Specialist
Available via [employer] text
Please use your independent medical judgment in providing your response.
== END 2024-10-04 15:39 | disposition home or self-care (01) | DRG 379 ==
LOC: 4 EAST ACU 08:29
PROVIDERS: Emergency Medicine; Internal Medicine; ADMITTING PHYSICIAN Internal Medicine; ATTENDING PHYSICIAN Internal Medicine; CONSULT PHYSICIAN Internal Medicine Gastroenterology; EMERGENCY PHYSICIAN Emergency Medicine; FAMILY PHYSICIAN Family Medicine
DX: K57.33 Diverticulitis of large intestine without perforation or abscess with bleeding (principal); D72.829 Elevated white blood cell count, unspecified; I10 Essential (primary) hypertension; E78.00 Pure hypercholesterolemia, unspecified; K21.9 Gastro-esophageal reflux disease without esophagitis; Z79.899 Other long term (current) drug therapy; Z86.0100 Personal history of colon polyps, unspecified
CPT/HCPCS: 74177; 80048; 80053; 81003; 82248; 83605; 83690; 83735; 85014; 85018; 85025; 85027; 86850; 86900; 86901; 96361; 96365; 96375; 99285; Q9967

== ENCOUNTER 2024-12-21 06:32 | Day surgery (SDC) | payer OTHER, SELFPAY | END 2024-12-21 16:15 | disposition home or self-care (01) | LOC: GI 06:32 | PROVIDERS: ATTENDING PHYSICIAN Internal Medicine Gastroenterology | DX: K57.30 Diverticulosis of large intestine without perforation or abscess without bleeding (principal); K64.8 Other hemorrhoids; R93.3 Abnormal findings on diagnostic imaging of other parts of digestive tract; Z98.0 Intestinal bypass and anastomosis status | CPT/HCPCS: 45380; 88305 ==

== ENCOUNTER → 2025-02-19 15:41 | Outpatient (REF) | payer OTHER, SELFPAY | LOC: WDC 15:41 | PROVIDERS: ATTENDING PHYSICIAN Obstetrics & Gynecology; FAMILY PHYSICIAN Family Medicine | DX: Z12.31 Encounter for screening mammogram for malignant neoplasm of breast (principal) | CPT/HCPCS: 77063; 77067 ==